=== PATIENT | male | born 1960 | race African-American/Black ===

== ENCOUNTER 2024-02-04 19:00 | Emergency (ER) | payer BC ==
[~2024-02-04] VITALS: Ht 182.9 cm; Wt 914.0 kg
[2024-02-04 19:07] VITALS: TEMP 98.4; O2SAT 97
[2024-02-04] MEDS ORDERED: HYDROCODONE/ACETAMINOPHEN 5/325MG TABLET PO ONE (19:30)
[2024-02-04] MEDS ORDERED: IBUP-2029 MT (20:26)
[2024-02-04 21:47] VITALS: BP 201/126; PULSE 78; RESP 16
[2024-02-04] MEDS: HYDROCODONE/ACETAMINOPHEN 5/325MG TABLET PO NR (21:47)
== END 2024-02-04 21:46 | disposition home or self-care (01) ==
LOC: ER 19:00
DX: M25.571 Pain in right ankle and joints of right foot (principal); M25.559 Pain in unspecified hip; E11.9 Type 2 diabetes mellitus without complications; I10 Essential (primary) hypertension; I25.2 Old myocardial infarction; V99.XXXA Unspecified transport accident, initial encounter; Y93.89 Activity, other specified; Y92.89 Other specified places as the place of occurrence of the external cause; Y99.8 Other external cause status
CPT/HCPCS: 72170; 73610; 73630; 99284

== ENCOUNTER 2025-04-14 01:35 | Inpatient (IN) | payer OTHER, BC ==
[~2025-04-14] VITALS: Ht 177.8 cm; Wt 89.8 kg
[~2025-04-14 01:35] MED LIST: IBUP-2029 MT
[2025-04-14 02:16] LABS: BASOPHILS % 0.8 % (0.0-2.0); EOSINOPHILS % 2.7 % (0.0-5.0); HEMATOCRIT. 33.8 % (42.0-52.0); HEMOGLOBIN. 11.3 g/dL (14.0-18.0); MEAN CORPUSCULAR HEMOGLOBIN 32.5 pg (28.0-32.0); MEAN CORPUSCULAR HGB CONC 33.5 g/dL (31.0-37.0); MEAN PLATELET VOLUME 8.6 fl (7.4-10.4); MONOCYTES % 8.8 % (2.0-8.0); NEUTROPHILS % 42.7 % (40.0-76.0); PLATELET 250 x1000/uL (130-400); RED BLOOD CELL COUNT 3.48 mill/uL (4.7-6.1); WHITE BLOOD COUNT 4.6 x1000/uL (4.5-11.0)
[2025-04-14] MEDS: HYDRALAZINE 20MG/ML VIAL IV ONE (02:18)
[2025-04-14 02:28] LABS: CHLORIDE 104 mEq/L (98-107); POTASSIUM 4.5 mEq/L (3.5-5.1); SODIUM 137 mEq/L (136-145)
[2025-04-14 02:29] LABS: CALCIUM 9.2 mg/dL (8.7-10.4); CARBON DIOXIDE 25 mEq/L (21-32)
[2025-04-14 02:34] LABS: GLUCOSE 173 mg/dL (70-105); UREA NITROGEN BLOOD 20 mg/dL (9-23)
[2025-04-14 02:35] LABS: ETHANOL BLOOD < 10 mg/dL (<10); TROPONIN I HIGH SENSITIVITY 13 ng/L (3.0-53)
[2025-04-14] MEDS: ACETAMINOPHEN 1000MG/100ML 100 ML IV ONE (03:06)
[2025-04-14 04:12] LABS: *AMPHETAMINES SCREEN URINE NEGATIVE (NEGATIVE); *BARBITURATES SCREEN URINE NEGATIVE (NEGATIVE); *BENZODIAZEPINES SCREEN URINE NEGATIVE (NEGATIVE); *COCAINE SCREEN URINE NEGATIVE (NEGATIVE); CANNABINOID URINE SCREEN NEGATIVE (NEGATIVE); ECSTASY MDMA SCREEN URINE NEGATIVE (NEGATIVE); METHADONE URINE SCREEN NEGATIVE (NEGATIVE); OPIATES URINE SCREEN NEGATIVE (NEGATIVE); PHENCYCLIDINE URINE SCREEN NEGATIVE (NEGATIVE)
[2025-04-14] MEDS: MORPHINE SULFATE 4 MG/ML INJ (FOR IV/IM USE) IV ONE (04:12)
[2025-04-14] MEDS: HYDRALAZINE 20MG/ML VIAL IV NR (05:12)
[2025-04-14 08:00] VITALS: BP 138/86; PULSE 85; RESP 16; TEMP 36.3
[2025-04-14] MEDS ORDERED: IBUPROFEN 600MG TABLET PO PRN (09:30)
[2025-04-14] MEDS ORDERED: KETOROLAC 15MG/ML VIAL IV PRN (09:30)
[2025-04-14] MEDS ORDERED: KETOROLAC 30MG/ML VIAL IV PRN (09:30)
[2025-04-14] MEDS ORDERED: METF-416 PO (09:37)
[2025-04-14] MEDS: ACETAMINOPHEN 325MG TABLET PO PRN (09:43)
[2025-04-14] MEDS ORDERED: GLYB5TAB7 MT (09:56)
[2025-04-14] MEDS ORDERED: LOSA100T33 MT (09:57)
[2025-04-14] MEDS ORDERED: COR25 MT (09:58)
[2025-04-14] MEDS ORDERED: DIPHENHYDRAMINE 50MG/ML VIAL IV PRN (11:00)
[2025-04-14] MEDS ORDERED: ZOLPIDEM TARTRATE 5MG TABLET PO PRN (11:00)
[2025-04-14] MEDS ORDERED: ONDANSETRON HCL 4MG/2ML INJ IV PRN (11:00)
[2025-04-14] MEDS ORDERED: CLONIDINE 0.1MG TABLET PO PRN (11:00)
[2025-04-14] MEDS: LOSARTAN 100 MG TABLET PO SCH (11:17)
[2025-04-14] MEDS: METFORMIN HCL 500MG TABLET PO SCH (11:17)
[2025-04-14 12:00] VITALS: BP 146/97; PULSE 78; RESP 17; TEMP 36.2; O2SAT 96
[2025-04-14] MEDS ORDERED: DEXTROSE 50% WATER 50ML SYRINGE IV PRN (13:45)
[2025-04-14] MEDS: SODIUM CHLORIDE 0.9% 3ML FLUSH IVF SCH (14:29)
[2025-04-14 16:00] VITALS: BP 128/84; PULSE 68; RESP 17; TEMP 36.7; O2SAT 98
[2025-04-14 16:08] LABS: HEPATITIS B SURFACE ANTIGEN NEGATIVE (Negative)
[2025-04-14 16:29] LABS: HEPATITIS C AB NON REACTIVE (Neg) (Negative)
[2025-04-14] MEDS ORDERED: GLYBURIDE 5MG TABLET PO SCH (17:20)
[2025-04-14] MEDS ORDERED: BLOOD SUGAR DIAGNOSTIC STRIP TEST SCH (17:20)
[2025-04-14 17:37] VITALS: BP 128/84; PULSE 68; TEMP 98.1; O2SAT 98
[2025-04-14] MEDS ORDERED: INSULIN LISPRO 100 UNITS/ML SUBCUT SCH (17:50)
[2025-04-14] MEDS ORDERED: METFORMIN HCL 500MG TABLET PO SCH (17:50)
[2025-04-14] MEDS ORDERED: CARVEDILOL 12.5MG TABLET PO SCH (21:00)
== END 2025-04-14 18:25 | disposition home or self-care (01) | DRG 605 ==
LOC: ER 01:35 → 6WST 04:25 → EDBEDREQTM 04:27 → EDBEDREQ 04:27 → ENRESERV 04:50
PROVIDERS: ADMIT Internal Medicine; ATTEND Internal Medicine
DX: S20.219A Contusion of unspecified front wall of thorax, initial encounter (principal); E11.9 Type 2 diabetes mellitus without complications; I10 Essential (primary) hypertension; M43.6 Torticollis; V43.52XA Car driver injured in collision with other type car in traffic accident, initial encounter; Y93.89 Activity, other specified; Y92.488 Other paved roadways as the place of occurrence of the external cause; Y99.8 Other external cause status; I25.2 Old myocardial infarction
CPT/HCPCS: 36415; 71045; 73030; 80048; 80305; 80320; 82962; 83036; 84484; 85025; 86705; 87340; 93005; 99285; J0360; J2270; G0480; J0131